=== PATIENT | female | born 1995 | race African-American/Black ===

== ENCOUNTER 2019-04-30 11:35 | Emergency (ER) | payer OTHER ==
[~2019-04-30] VITALS: Ht 170.2 cm; Wt 145.1 kg
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
[2019-04-30 12:13] VITALS: BP 119/85
--- NOTE | 2019-04-30 12:49 | NUR ---
ED Nurse Note: pt back from ct
--- NOTE | 2019-04-30 13:00 | NUR ---
ED Nurse Note: pt to radiology dept.
--- NOTE | 2019-04-30 13:11 | Diagnostic Imaging Report ---
Indication: Headache head trauma Technique: Contiguous 5 mm thick transaxial imaging of the head obtained in a Siemens Sensation [address] scanner. Soft tissue and bone windows generated. Automatic Exposure Control was utilized. Total Dose length Product (DLP): 1363.[address] Dose Index Volume (CTDIvol): 62.7 mGy Comparison: none Findings: The size and configuration of the cortical sulci, basal cisterns, and ventricles are within normal limits for age. There is no mass effect, midline shift, or edema identified. There is no evidence of acute hemorrhage or abnormal intra-axial or extra-axial fluid collections. The bones and soft tissues are unremarkable. Impression: No mass effect, edema or acute bleed. The CT scanner at [facility] is accredited by the [employer] and the scans are performed using dose optimization techniques as appropriate to a performed exam including Automatic Exposure control.
[2019-04-30] MEDS ORDERED: IBUPROFEN600 MG ORAL (13:42)
[2019-04-30] MEDS ORDERED: ZOFRAN4 M1 ORAL (13:42)
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
[2019-04-30 13:59] VITALS: BP 125/85
--- NOTE | 2019-04-30 14:00 | NUR ---
ER DISCHARGE NOTE:Patient is cleared to be discharged per ERMD, pt is aox4, on room air, with stable vital signs. pt was given dc and prescription instructions, pt was able to verbalize understanding, pt id band removed. pt is able to ambulate with steady gait. pt took all belongings. Vital signs stable as documented
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
== END 2019-04-30 13:35 | disposition home or self-care (01) ==
LOC: EMR 12:11
DX: S00.93XA Contusion of unspecified part of head, initial encounter (principal); S20.211A Contusion of right front wall of thorax, initial encounter; W50.0XXA Accidental hit or strike by another person, initial encounter; Y92.9 Unspecified place or not applicable; E66.01 Morbid (severe) obesity due to excess calories; Z68.43 Body mass index [BMI] 50.0-59.9, adult
CPT/HCPCS: 70450; 71101; Z7502; 99284